=== PATIENT | male | born 1960 | race Caucasian/White ===

== ENCOUNTER 2022-12-03 12:22 | Day surgery (SDC) | payer BC ==
[2022-12-03] MEDS ORDERED: Lactated Ringers 1,000 ML IV ONE ×2 (12:39→14:13)
[2022-12-03] MEDS: Lactated Ringers 1,000 ML IV SCH ×2 (12:44→12:53)
[2022-12-03] MEDS ORDERED: Versed 2 MG/2 ML Injection ONE (14:08)
[2022-12-03] MEDS ORDERED: DIPRIVAN 200 MG/20 ML IV ONE ×2 (14:09→14:32)
[2022-12-03 15:32] VITALS: BP 142/89; PULSE 56; O2SAT 97
--- NOTE | 2022-12-04 08:49 | OP ---
PROCEDURE DATE/TIME: 12/03/2022 1413 PREOPERATIVE DIAGNOSIS: Due for screening colonoscopy. POSTOPERATIVE DIAGNOSIS: Due for screening colonoscopy. PROCEDURE: Colonoscopy to cecum with hot snare polypectomy x1 and cold forceps polypectomy x2. PROCEDURE PERFORMED BY: Amber Bazan M.D. ANESTHESIA: MAC. ESTIMATED BLOOD LOSS: Minimal. COMPLICATIONS: None. SPECIMENS: 1) Ulcerative cecal polyp. 2) Splenic flexure polyp. 3) Rectosigmoid polyp. PLAN: Repeat colonoscopy tentatively in three years. Final pathology and discussion are pending. PROCEDURE DETAILS: This is a gentleman who presents for screening colonoscopy. Risks, benefits, alternatives have personally been discussed with the patient. He was also seen in the preoperative area. H&P and consent reviewed with him and confirmed. All questions answered. DESCRIPTION OF PROCEDURE: He was brought back to the endoscopy suite laid in the left lateral decubitus position. First a rectal exam was done. It was noted that his prostate was slightly enlarged. I did not feel any masses however. The scope was then inserted and gently advanced to the level of the cecum. The cecum was clearly identified with appendiceal orifice as well as the ileocecal valve. These appeared to be normal. Within the cecum there was approximately 8 to 10 mm semi-sessile polyp with an ulcerated center this was taken in entirety with a hot snare. It was suctioned in the trap. Multiple small pieces were retrieved but it appeared that the polyp exploded within the section so all these pieces that were retrieved in the trap are being sent to pathology. He also had multiple seeds throughout his colon and a very small amount of thick solid stool and mainly liquid stool. The prep was satisfactory overall. We then carefully surveyed the rest of the cecum and withdrew the scope taking a nice circumferential view. I identified two very small polyps one in the splenic flexure and one in the rectosigmoid region both were semi-sessile, small and taken with cold forceps in entirety and sent to pathology. The patient did not have any other significant findings. He has minimal hemorrhoidal disease. Due to the finding of the cecal polyp and the limited pathology due to the fragile nature of the polyp, I would recommend to do another colonoscopy in approximately three years for surveillance. He will be following up with me for final pathology results. I have also discussed with his family to follow up with his primary care physician regarding his prostate and then we will see him as well in the office.
== END 2022-12-03 15:40 | disposition home or self-care (01) ==
LOC: SDC 12:22 → EDSTATUS 16:16
PROVIDERS: ATTEND Surgery
DX: Z12.11 Encounter for screening for malignant neoplasm of colon (principal); K63.5 Polyp of colon; I10 Essential (primary) hypertension
CPT/HCPCS: J2250; J2704